=== PATIENT | female | born 1945 ===

== ENCOUNTER 2022-05-30 08:43 | Observation (INO) | payer OTHER ==
--- OUTSIDE RECORDS SUMMARY | 2022-05-30 08:46 | XMS REPORT | Continuity of Care Document ---
:1945 Author Organization [facility] t Address [address] [place] [address] Care Team Providers Name Role Phone Tony Anderson MD Primary Care Physician TONY ANDERSON Attending Clinician Unavailable Problems This patient has no known problems. Allergies, Adverse Reactions, Alerts This patient has no known allergies or adverse reactions. Social History Social Habit Start Date Stop Date Quantity Comments Source Sex Ass[birth year] At [birth year] [facility] 00:00:00 00:00:00 Smoking Status Start Date Stop Date Source Tobacco smoking consumption unknown [facility] Medications This patient has no known medications. Procedures This patient has no known procedures. Plan of Care Planned Activity Planned Date Details Comments Source Future Scheduled 2022-05-30 INFLUENZA VACCINE [facility] Test 08:46:42 [code = INFLUENZA VACCINE] Future Scheduled 2022-05-30 Hepatitis C screening [facility] Test 08:46:42 (procedure) [code = [id number]] Future Scheduled 2022-05-30 BREAST CANCER [facility] Test 08:46:42 SCREENING [code = BREAST CANCER SCREENING] Future Scheduled 2022-05-30 COLONOSCOPY SCREENING [facility] Test 08:46:42 [code = COLONOSCOPY SCREENING] Future Scheduled 2022-05-30 SHINGLES VACCINES (1 Met [facility] Test 08:46:42 of 2) [code = SHINGLES VACCINES (1 of 2)] Future Scheduled 2022-05-30 COVID-19 VACCINE (4 - Me [facility] Test 08:46:42 Booster for Pfizer series) [code = COVID-19 VACCINE (4 - Booster for Pfizer series)] Future Scheduled 2022-05-30 65+ [facility]CCAL [facility] 08:46:42 VACCINE (2 - PPSV23 if available, else PCV20) [code = 65+ PNEUMOCOCCAL VACCINE (2 - PPSV23 if available, else PCV20)] Future Scheduled 2022-05-04 COVID-19 VACCINE ([facility] - [facility] Test 10:58:36 Booster for Pfizer series) [code = COVID-19 VACCINE (4 - Booster for Pfizer series)] Future Scheduled 2022-05-04 65+ [facility]CCAL [facility] Test 10:58:36 VACCINE (2 - PPSV23 if available, else PCV20) [code = 65+ PNEUMOCOCCAL VACCINE (2 - PPSV23 if available, else PCV20)] Future Scheduled 2022-05-04 [facility]ACCINE [facility] Test 10:58:36 [code = INFLUENZA VACCINE] Future Scheduled 2022-05-04 Hepatitis C screening [facility] Test 10:58:36 (procedure) [code = [id number]] Future Scheduled 2022-05-04 BREAST CANCER [facility] Test 10:58:36 SCREENING [code = BREAST CANCER SCREENING] Future Scheduled 2022-05-04 COLONOSCOPY SCREENING [facility] Test 10:58:36 [code = COLONOSCOPY SCREENING] Future Scheduled 2022-05-04 SHINGLES VACCINES (1 Met [facility] Test 10:58:36 of 2) [code = SHINGLES VACCINES (1 of 2)] Future Scheduled 2022-05-04 COVID-19 VACCINE (4 - Me [facility] Test 10:58:36 Booster for Pfizer series) [code = COVID-19 VACCINE (4 - Booster for Pfizer series)] Future Scheduled 2022-05-04 65+ [facility]OCOCCAL [facility] Test 10:58:36 VACCINE (2 - PPSV23 if available, else PCV20) [code = 65+ PNEUMOCOCCAL VACCINE (2 - PPSV23 if available, else PCV20)] Future Scheduled 2022-05-04 [facility]ZA [facility]ACCINE [facility] Test 10:58:36 [code = INFLUENZA VACCINE] Future Scheduled 2022-05-04 Hepatitis C screening [facility] Test 10:58:36 (procedure) [code = [id number]] Future Scheduled 2022-05-04 BREAST CANCER [facility] Test 10:58:36 SCREENING [code = BREAST CANCER SCREENING] Future Scheduled 2022-05-04 COLONOSCOPY SCREENING Me [facility] Test 10:58:36 [code = COLONOSCOPY SCREENING] Future Scheduled 2022-05-04 SHINGLES VACCINES (1 Met [facility] Test 10:58:36 of 2) [code = SHINGLES VACCINES (1 of 2)] Future Scheduled 2022-05-04 COVID-19 VACCINE (4 - Me [facility] Test 10:58:36 Booster for Pfizer series) [code = COVID-19 VACCINE (4 - Booster for Pfizer series)] Future Scheduled 2022-05-04 65+ [facility]OCCAL [facility] Test 10:58:36 VACCINE (2 - PPSV23 if available, else PCV20) [code = 65+ PNEUMOCOCCAL VACCINE (2 - PPSV23 if available, else PCV20)] Future Scheduled 2022-05-04 INFLUENZA VACCINE [facility] Test 10:58:36 [code = INFLUENZA VACCINE] Future Scheduled 2022-05-04 Hepatitis C screening [facility] Test 10:58:36 (procedure) [code = [id number]] Future Scheduled 2022-05-04 BREAST CANCER [facility] Test 10:58:36 SCREENING [code = BREAST CANCER SCREENING] Future Scheduled 2022-05-04 COLONOSCOPY SCREENING [facility] Test 10:58:36 [code = COLONOSCOPY SCREENING] Future Scheduled 2022-05-04 SHINGLES VACCINES (1 Met [facility] Test 10:58:36 of 2) [code = SHINGLES VACCINES (1 of 2)] Future Scheduled 2022-05-03 Hepatitis C screening [facility] Test 16:10:30 (procedure) [code = [id number]] Future Scheduled 2022-05-03 BREAST CANCER [facility] Test 16:10:30 SCREENING [code = BREAST CANCER SCREENING] Future Scheduled 2022-05-03 COLONOSCOPY SCREENING [facility] Test 16:10:30 [code = COLONOSCOPY SCREENING] Future Scheduled 2022-05-03 SHINGLES VACCINES (1 Met [facility] Test 16:10:30 of 2) [code = SHINGLES VACCINES (1 of 2)] Future Scheduled 2022-05-03 COVID-19 VACCINE (4 - Me [facility] Test 16:10:30 Booster for Pfizer series) [code = COVID-19 VACCINE (4 - Booster for Pfizer series)] Future Scheduled 2022-05-03 65+ [facility]AL [facility] 16:10:30 VACCINE (2 - PPSV23 if available, else PCV20) [code = 65+ PNEUMOCOCCAL VACCINE (2 - PPSV23 if available, else PCV20)] Future Scheduled 2022-05-03 INFLUENZA VACCINE [facility] Test 16:10:30 [code = INFLUENZA VACCINE] Future Scheduled 2022-04-11 COLONOSCOPY SCREENING [facility] Test 03:10:41 [code = COLONOSCOPY SCREENING] Future Scheduled 2022-04-11 SHINGLES VACCINES (1 Met [facility] Test 03:10:41 of 2) [code = SHINGLES VACCINES (1 of 2)] Future Scheduled 2022-04-11 COVID-19 VACCINE (4 - [facility] Test 03:10:41 Booster for Pfizer series) [code = COVID-19 VACCINE (4 - Booster for Pfizer series)] Future Scheduled 2022-04-11 65+ PNEUMOCOCCAL [facility] Test 03:10:41 VACCINE (2 - PPSV23 if available, else PCV20) [code = 65+ PNEUMOCOCCAL VACCINE (2 - PPSV23 if available, else PCV20)] Future Scheduled 2022-04-11 INFLUENZA VACCINE Method [facility] Test 03:10:41 [code = INFLUENZA VACCINE] Future Scheduled 2022-04-11 Hepatitis C screening [facility] Test 03:10:41 (procedure) [code = [id number]] Future Scheduled 2022-04-11 BREAST CANCER [facility] Test 03:10:41 SCREENING [code = BREAST CANCER SCREENING] Encounters Start End Encounter Admission Attending Care Care Encounter Source Date/Time Date/Time Type Type Clinicians Facility Department ID 2021-03-22 2021-03-22 Outpatient [facility] [id number] 00:00:00 00:00:00 TONY [address] 2021-03-22 2021-03-22 Outpatient [facility] [id number] 00:00:00 00:00:00 TONY Navarrete[address] [facility] Results This patient has no known results.
[2022-05-30 09:29] LABS: Absolute Lymphocytes (CBC) 2.2 K/uL (0.7-4.9); Hematocrit 35.5 % (36.0-45.0); Lymphocytes % 17.3 % (15.3-44.8); MCV 83.7 fL (80-100); MPV 7.7 fL (7.6-11.3); RBC Red Blood Cell Count 4.24 M/uL (3.86-4.86)
[2022-05-30 10:00] LABS: Protime INR 0.94
[2022-05-30 10:13] LABS: Albumin 3.2 g/dL (3.4-5.0); Bilirubin Total 0.2 mg/dL (0.2-1.0); Protein, Total 7.2 g/dL (6.4-8.2)
--- NOTE | 2022-05-30 10:42 | RAD REPORT ---
EXAM DESCRIPTION: CT - Abdomen Pelvis W Contrast - 05/30/2022 10:26 am CLINICAL HISTORY: painless rectal bleeding COMPARISON: No comparisons TECHNIQUE: Biphasic, helical CT imaging of the abdomen and pelvis was performed following 100 ml non -ionic IV contrast. Oral contrast: No. All CT scans are performed using dose optimization technique as appropriate and may include automated exposure control or mA/KV adjustment according to patient size. FINDINGS: No suspicious findings in the lung bases. The liver, spleen, and pancreas show no suspicious findings. Liver attenuation is borderline to mildl y fatty infiltrated. Gallbladder is contracted. No abnormal biliary tree dilatation. Symmetric renal function is seen with no hydronephrosis or suspicious renal mass. No pyelonephritis o r acute parenchymal process. No bladder abnormalities. No adrenal abnormalities. Uterus still appears to be present and is isodense to adjacent bowel. Ovaries are not identified and absent by provided s urgical history. No stomach or small bowel abnormality. The ball of the colon show no abnormal thickening or edema. N o mass identifiable on CT imaging. No free air, free fluid or inflammatory stranding. No hernia, ma ss or bulky lymphadenopathy. No suspicious bony findings. IMPRESSION: No suspicious finding of the colon and no significant GI abnormality identifiable.
--- NOTE | 2022-05-30 11:24 | ER ---
Nurse's Notes [facility] Name: Analy Bush Age: 76 yrs Sex: Female : 1945 Arrival Date: 05/30/2022 Time: 08:44 Bed 23 Private MD: Tony Anderson V; Luis Oconnor M Diagnosis: GI Bleed/ Gastrointestinal hemorrhage, unspecified;Anemia, unspecified Presentation: 05/30 08:55 Chief complaint: Patient states: 5 bloody diarrhea episodes between [id number] today. Pt aa5 denies vomiting. Reports she had a colonoscopy 05/18/[address] Oconnor, polyps were found and biopsy result is pending. 08:55 Coronavirus screen: diarrhea. Ebola Screen: Patient denies travel to an Ebola-affected [facility] area in the 21 days before illness onset. Initial Sepsis Screen: Does the patient meet any 2 criteria? HR > 90 bpm. Does the patient have a suspected source of infection? No. Patient's initial sepsis screen is negative. Risk Assessment: Do you want to hurt yourself or someone else? Patient reports no desire to harm self or others. Onset of symptoms was May 30, 2022. 08:55 Acuity: JOSE MANUEL 3 aa5 08:55 Method Of Arrival: Ambulatory aa5 Historical: - Allergies: 09:07 PENICILLINS; aa5 09:07 Aspirin; aa5 - PMHx: 09:07 Hypertensive disorder; Hypothyroidism; pre-diabetes; Breast Cancer; aa5 - PSHx: 09:07 Double mastectomy; Both ovaries removed; R ankle; aa5 - Immunization history:: Adult Immunizations unknown. - Social history:: Smoking status: Patient denies any tobacco usage or history of. - Family history:: not pertinent. - Hospitalizations: : No recent hospitalization is reported. Screenin:54 [facility] ED Fall Risk Assessment (Adult) Score/Fall Risk Level 0 - 2 = Low Risk. Abuse iw screen: Denies threats or abuse. Denies injuries from another. Nutritional screening: No deficits noted. Tuberculosis screening: No symptoms or risk factors identified. Assessment: 09:53 General: Appears in no apparent distress. Behavior is calm, cooperative. Pain: Denies iw pain. Neuro: Level of Consciousness is awake, alert, obeys commands, Oriented to person, place, time, situation, Moves all extremities. Full function. Cardiovascular: Patient's skin is warm and dry. Respiratory: Respiratory effort is even, unlabored, Respiratory pattern is regular, symmetrical. GI: Abdomen is non-distended, Reports rectal bleeding. Derm: Skin is intact, is healthy with good turgor. 11:54 Reassessment: Patient appears in no apparent distress at this time. Patient and/or iw family updated on plan of care and expected duration. Pain level reassessed. Patient is alert, oriented x 3, equal unlabored respirations, skin warm/dry/pink. 12:18 Reassessment: Dr. Arvizu at bedside discussing results and POC with pt and family. jl7 Vital Signs: 08:55 BP 140 / 69; Pulse 108; Resp 18 S; Temp 98.9(O); Pulse Ox 99% on R/A; Weight 68.04 kg aa5 (R); Height 5 ft. 3 in. (160.02 cm) (R); 11:54 BP 116 / 72; Pulse 92; Resp 16; Pulse Ox 100% on R/A; Pain 0/10; iw 08:55 Body Mass Index 26.57 (68.04 kg, 160.02 cm) aa5 ED Course: 08:44 Patient arrived in ED. as 08:44 Tony Anderson MD is Private Physician. as 08:44 Luis Oconnor MD is Private Physician. as 08:45 Kei Arvizu MD is Attending Physician. rn 08:54 Arm band placed on Patient placed in an exam room, on a stretcher. aa5 09:07 Triage completed. aa5 09:09 Yuliya Schmidt RN is Primary Nurse. iw 09:54 Missed attempt(s): 20 gauge in right antecubital area. Bleeding controlled, band aid iw applied, catheter tip intact. 09:54 Inserted saline lock: 22 gauge in left wrist, using aseptic technique. IV inserted by christy Jeffery RN. 10:28 CT Abd/Pelvis - IV Contrast Only In Process Unspecified. EDMS 11:24 Tony Anderson MD is Hospitalizing Provider. rn 12:51 Patient has correct armband on for positive identification. Pulse ox on. NIBP on. jl7 18:00 No provider procedures requiring assistance completed. Patient admitted, IV remains in jl7 place. intact, No redness/swelling at site. Administered Medications: No medications were administered Medication: 09:55 VIS not applicable for this client. christy Outcome: 11:24 Decision to Hospitalize by Provider. rn 18:00 Admitted to ER Hold. Please see [facility] for further documentation. laxmi 18:00 Condition: stable 18:00 Discharge instructions given to patient, family, Instructed on the need for admit, Demonstrated understanding of instructions. 05/31 07:52 Patient left the ED. kl Signatures: Dispatcher [employer] EDMS Sandra Aceveod, Cynthia Cedillo RN, Irene, Kei Yepez RN, MD MD rn Calderon, Audri, RN RN aa5 Justin Holm RN RN jl7
--- NOTE | 2022-05-30 11:24 | EDPHYS ---
Physician Documentation [facility] Name: Analy Bush Age: 76 yrs Sex: Female : 1945 Arrival Date: 05/30/2022 Time: 08:44 Bed 23 Private MD: Tony Anderson V; Meah, Nizam, M ED Physician Kei Arvizu HPI: 05/30 09:15 This 76 yrs old Female presents to ER via Ambulatory with complaints of Rectal rn Bleeding, Diarrhea. 09:15 The patient presents to the emergency department with bleeding from the rectum/anus, rn that is mild. Onset: The symptoms/episode began/occurred this morning. Modifying factors: The symptoms are alleviated by nothing, The symptoms are aggravated by bowel movement. Associate signs and symptoms: Pertinent positives: lower GI bleeding, Pertinent negatives: abdominal pain, fever. The patient has not experienced similar symptoms in the past. The patient has not recently seen a physician. Does not take any blood thinners. . Historical: - Allergies: 09:07 PENICILLINS; aa5 09:07 Aspirin; aa5 - PMHx: 09:07 Hypertensive disorder; Hypothyroidism; pre-diabetes; Breast Cancer; aa5 - PSHx: 09:07 Double mastectomy; Both ovaries removed; R ankle; aa5 - Immunization history:: Adult Immunizations unknown. - Social history:: Smoking status: Patient denies any tobacco usage or history of. - Family history:: not pertinent. - Hospitalizations: : No recent hospitalization is reported. ROS: 09:15 Constitutional: Negative for fever, chills, and weight loss, Eyes: Negative for injury, rn pain, redness, and discharge, Cardiovascular: Negative for chest pain, palpitations, and edema, Respiratory: Negative for shortness of breath, cough, wheezing, and pleuritic chest pain, Abdomen/GI: + rectal bleeding, negative for abd pain Back: Negative for injury and pain, MS/Extremity: Negative for injury and deformity, Skin: Negative for injury, rash, and discoloration, Neuro: Negative for headache, numbness, tingling, and seizure. Exam: 09:15 Constitutional: This is a well developed, well nourished patient who is awake, alert, rn and in no acute distress. Head/Face: Normocephalic, atraumatic. Cardiovascular: Tachycardic, regular Respiratory: No increased work of breathing, no retractions or nasal flaring. Abdomen/GI: soft, non-tender Skin: Warm, dry MS/ Extremity: Pulses equal, no cyanosis. Neuro: Awake and alert, GCS 15 Vital Signs: 08:55 BP 140 / 69; Pulse 108; Resp 18 S; Temp 98.9(O); Pulse Ox 99% on R/A; Weight 68.04 kg aa5 (R); Height 5 ft. 3 in. (160.02 cm) (R); 11:54 BP 116 / 72; Pulse 92; Resp 16; Pulse Ox 100% on R/A; Pain 0/10; iw 08:55 Body Mass Index 26.57 (68.04 kg, 160.02 cm) aa5 MDM: 08:45 Patient medically screened. rn 11:15 Management of patient was discussed with the following: Departmental Secretary: Discussed case with rn Dr. Oconnor's PLANTING MATERIAL REMOVER, she will consult with Dr. Calles and get back with me with recommendations. Told her that I prefer to observe in hospital and would like Dr. Calles to consult. . 11:20 Differential diagnosis: hemorrhoids, bleeding from polyp removal, bleeding from scab, rn MARIAH, diverticulosis, internal hemorrhoids. Data reviewed: vital signs, nurses notes, lab test result(s), radiologic studies. Consideration of Admission/Observation Escalation of care including admission/observation considered. Counseling: I had a detailed discussion with the patient and/or guardian regarding: the historical points, exam findings, and any diagnostic results supporting the discharge/admit diagnosis, lab results, radiology results, the need for further work-up and treatment in the hospital. Response to treatment: the patient's symptoms have mildly improved after treatment, and as a result, I will admit patient. ED course: No further episodes of bloody bowel movements while in ER, may be slowing, could be from recent polyp removal. Stable vitals and hemoglobin 11.7. Waiting education finance processor back from Dr. Calles. . 05/30 09:14 Order name: CBC with Diff; Complete Time: 10:19 rn 05/30 09:14 Order name: CMP; Complete Time: 10: rn 05/30 09:14 Order name: Lipase; Complete Time: : rn 05/30 09:14 Order name: Type And Screen; Complete Time: 10:19 rn 05/30 09:14 Order name: PT-INR; Complete Time: 10:19 rn 05/30 09:14 Order name: Ptt, Activated; Complete Time: 10:19 rn 05/30 09:14 Order name: CT Abd/Pelvis - IV Contrast Only; Complete Time: 10:45 rn 05/30 09:14 Order name: IV Saline Lock; Complete Time: 09:48 rn 05/30 09:14 Order name: Labs collected and sent; Complete Time: 09:33 rn 05/30 11:29 Order name: SARS-COV-2 Antigen Rapid; Complete Time: 12:16 bd 05/30 18:36 Order name: Hemoglobin EDMS 05/30 20:14 Order name: Hemoglobin EDMS 05/31 03:02 Order name: CBC with Automated Diff EDMS 05/31 03:58 Order name: Basic Metabolic Panel EDMS 05/30 09:37 Order name: Labs - recollect needed: green/blue top; Complete Time: 09:49 aa5 Administered Medications: No medications were administered Disposition Summary: 05/30/22 11:24 Hospitalization Ordered Hospitalization Status: Observation rn Provider: Tony Anderson rn Condition: Stable rn Problem: new rn Symptoms: have improved rn Bed/Room Type: Standard rn Location: Telemetry/MedSurg (observation)(05/31/22 06:01) mw Room Assignment: 403(05/31/22 06:01) mw Diagnosis - GI Bleed/ Gastrointestinal hemorrhage, unspecified rn - Anemia, unspecified rn Forms: - Medication Reconciliation Form rn - SBAR form rn Signatures: Dispatcher [facility] Cara Otero RN RN Kei Parada MD MD rn Calderon, Audri, RN RN aa5 Justin Holm RN RN jl7 Corrections: (The following items were deleted from the chart) 19:08 11:24 Telemetry/MedSurg (observation) deborah hair 19:08 11:24 deborah hair 05/31 06:05/30 19:08 [facility] ER HOLD laxmi mw 05/31 06:05/30 19:08 ERHOLD- laxmi mw
[2022-05-30 12:04] LABS: SARS-CoV-2 Antigen Rapid Res Negative (Negative)
[2022-05-30] MEDS ORDERED: ONDANSETRON 4 MG/2 ML VIAL IV PRN (15:22)
[2022-05-30] MEDS ORDERED: D5 0.45 NS 1,000 ML IV ONE (18:27)
[2022-05-30] MEDS: D5 0.45 NS 1,000 ML IV SCH (18:30)
[2022-05-30 18:33] VITALS: BMI 25.7
[2022-05-30] MEDS ORDERED: GOLYTELY 4000 ML PO SCH (20:00)
[2022-05-30] MEDS ORDERED: MAGNESIUM CITRATE 300 ML BOT PO SCH (20:00)
[2022-05-30] MEDS: METOCLOPRAMIDE 10 MG/2mL INJ IV SCH (20:00)
[2022-05-30] MEDS ORDERED: METOCLOPRAMIDE 10 MG/2mL INJ ONE (21:26)
--- NOTE | 2022-05-30 21:59 | P.HP ---
Certification for Inpatient Patient admitted to: Observation With expected LOS: <2 Midnights Practitioner: I am a practitioner with admitting privileges, knowledge of patient current condition, hospital course, and medical plan of care. Services: Services provided to patient in accordance with Admission requirements found in Title 42 Section 412.3 of the Code of Federal Regulations Patient History Date of Service: 05/30/22 Reason for admission: GI BLEED History of Present Illness: ABOUT 12 DAYS AFTER COLONOSCOPY SHE HAD ACUTE BLEEDING LOWER. GATITO REMOVED POLYP ON . Allergies aspirin Allergy (Verified 07/31/16 13:58) rash, swelling Penicillins Adverse Reaction (Verified 08/03/16 10:41) Rash Home medications list reviewed: Yes Home Medications: Amlodipine Besylate 10 mg PO DAILY 05/30/22 Levothyroxine Sodium [Levothyroxine] 75 mcg PO DAILY 05/30/22 - Past Medical/Surgical History Has patient received pneumonia vaccine in the past: Yes Diabetic: No -: HTN -: Thyroid - Social History Smoking Status: Never smoker Place of Residence: Home Review of Systems 10-point ROS is otherwise unremarkable General: Malaise Gastrointestinal: Other Physical Examination - Vital Signs Temperature: 98.3 F Blood Pressure: 110/73 Pulse: 87 Respirations: 15 Pulse Ox (%): 97 - Physical Exam General: Alert, In no apparent distress HEENT: Atraumatic, PERRLA, Mucous membr. moist/pink, EOMI, Sclerae nonicteric Neck: Supple, 2+ carotid pulse no bruit, No LAD, Without JVD or thyroid abnormality Respiratory: Clear to auscultation bilaterally, Normal air movement Cardiovascular: Regular rate/rhythm, Normal S1 S2 Gastrointestinal: Normal bowel sounds, No tenderness Musculoskeletal: No tenderness Integumentary: No rashes Neurological: Normal gait, Normal speech, Normal strength at 5/5 x4 extr, Normal tone, Normal affect Lymphatics: No axilla or inguinal lymphadenopathy - Studies Laboratory Data (last 24 hrs) 05/30/22 09:45: PT 10.3, INR 0.94, APTT 27.6 05/30/22 09:45: Sodium 139, Potassium 4.0, BUN 14, Creatinine 0.81, Glucose 155 H, Total Bilirubin 0.2, AST 17, ALT 18, Alkaline Phosphatase 77, Lipase 198 05/30/22 09:17: WBC 12.50 H, Hgb 11.7 L, Hct 35.5 L, Plt Count 316 Assessment and Plan - Problems (Diagnosis) (1) GI bleed Current Visit: Yes Status: Acute Plan: LWOER GI BLEEDING. CBC IN AM SHE SHOULD BE ABLE TO GO HOME TOMORROW POLYPECTOMY CAN LEAD TO LATE BLEEDING. NOT UNUSAL. - Advance Directives Does patient have a Living Will: No Does patient have a Durable POA for Healthcare: No
[2022-05-30] MEDS ORDERED: GOLYTELY 4000 ML ONE (22:16)
[2022-05-31] MEDS ORDERED: METOCLOPRAMIDE 10 MG/2mL INJ ONE (01:35)
[2022-05-31] MEDS: METOCLOPRAMIDE 10 MG/2mL INJ IV SCH ×2 (02:00→09:20)
[2022-05-31 02:59] LABS: Absolute Lymphocytes (CBC) 1.6 K/uL (0.7-4.9); Hematocrit 31.3 % (36.0-45.0); Lymphocytes % 11.2 % (15.3-44.8); MCV 83.6 fL (80-100); MPV 8.3 fL (7.6-11.3); RBC Red Blood Cell Count 3.75 M/uL (3.86-4.86)
[2022-05-31 03:36] LABS: Potassium 3.8 mmol/L (3.5-5.1)
[2022-05-31] MEDS ORDERED: CIPROFLOXACIN 400mg IV 400 MG/200 ML BAG IV SCH (09:00)
[2022-05-31] MEDS: D5 0.45 NS 1,000 ML IV SCH ×2 (09:23→09:30)
[2022-05-31] MEDS: NA CHLORIDE 0.9% 1,000 ML ONE ×2 (10:02→10:21)
[2022-05-31] MEDS ORDERED: ETOMIDATE 20 MG/10 ML VIAL IV ONE (10:33)
[2022-05-31] MEDS ORDERED: propofoL 200 MG/20 ML VIAL IV ONE (10:33)
[2022-05-31] MEDS ORDERED: LIDOCAINE 1% MPF 5 ML VIAL ONE (10:33)
[2022-05-31] MEDS ORDERED: EPINEPHRINE/PF 1 MG/ML AMP ONE (11:21)
[2022-05-31] MEDS ORDERED: Phenylephrine HCl 10 MG/ML 1 ML VIAL ONE (11:26)
[2022-05-31 11:27] VITALS: O2SAT 94
--- NOTE | 2022-05-31 11:27 | ENDO RPT ---
[facility] [address], [id number] COLONOSCOPY PROCEDURE REPORT EXAM DATE: 05/31/2022 PATIENT NAME: Analy Bush MR #: [id number] BIRTHDATE: 1945 ATTENDING: Mayco Levine Dr STATUS: inpatient - [facility] [employer]ER: Jesi Kraft RN, Frannie Osman RN, and Criss Bright INDICATIONS: The patient is a 76 yr old Female here for a colonoscopy due to hematochezia and anemia PROCEDURE PERFORMED: Colonoscopy for control of bleeding, Colon w/ endoclip, and Colonoscopy with directed submucosal injection(s) any substance MEDICATIONS: Per Anesthesia. ESTIMATED BLOOD LOSS: None CONSENT: The patient understands the risks and benefits of the procedure and understands that these risks include, but are not limited to: sedation, allergic reaction, infection, perforation and/or bleeding. Alternative means of evaluation and treatment include, among others: physical exam, x-rays, and/or surgical intervention. The patient elects to proceed with this endoscopic procedure. DESCRIPTION OF PROCEDURE: During intra-op preparation period all mechanical medical equipment was checked for proper function. Hand hygiene and appropriate measures for infection prevention was taken. Procedure, possible complications, alternatives including, but not limited to possibility of bleeding, perforation, tear, infection, sepsis, need for surgery, need for blood transfusion, were explained to the patient. After the risks, benefits and alternatives of the procedure were thoroughly explained, Informed consent was verified, confirmed and timeout was successfully executed by the treatment team. The patient was placed in the left lateral position. A digital rectal exam was performed and revealed several skin tags. After appropriate level of anesthesia, the scope was passed. The EC-[id number] ([id number]) endoscope was introduced through the anus and advanced to the cecum, which was identified by both the appendix and ileocecal valve. The quality of the prep was good. The instrument was then slowly withdrawn as the colon was fully examined. Scope withdrawal time was 9 minutes. COLON FINDINGS: A single bleeding and clean-based ulcer measuring 10 x 9mm in size with a visible vessel was found at the cecum at prior polypectomy site from 05-18-. Complete hemostasis was achieved by placing two Cook instinct hemoclips on the bleeding site(s). Submucosal injection of 4ml of epinephrine 1:10,000 was performed around the bleeding site. Small internal hemorrhoids were found. Retroflexed views revealed no abnormalities. The scope was then completely withdrawn from the patient and the procedure terminated. ADVERSE EVENTS: There were no complications. IMPRESSIONS: 1. Single ulcer measuring 10 x 9mm in size at the cecum with visible vessel in the base of the ulcer at prior polypectomy site from 05-18-22; Complete hemostasis was achieved by placing two hemoclips on the bleeding site(s); Submucosal injection of 4ml of epinephrine 1:10,000 was performed around the bleeding site 2. Small internal hemorrhoids 3. Intubation to cecum RECOMMENDATIONS: 1. avoid NSAIDS for 2 weeks 2. clear liquid diet and advance as tolerated to a GI soft diet RECALL: Mayco Levine Dr eSigned: Mayco Levine Dr 05/31/2022 11:26 AM cc: Tony Anderson CPT CODES: ICD9 CODES: PATIENT NAME: Analy Bush MR#: [id number]
[2022-05-31] MEDS ORDERED: METRONIDAZOLE 500mg IVPB 500 MG/100 ML BAG IV SCH (12:00)
[2022-05-31 16:38] VITALS: BP 123/65; TEMP 97.9
== END 2022-05-31 17:32 | disposition home or self-care (01) ==
LOC: ER 08:43 → ERHOLD 14:15 → 4TH 05-31 07:45
PROVIDERS: ADMIT Internal Medicine; ATTEND Internal Medicine
PROC: 3E0H8KZ Introduction of Other Diagnostic Substance into Lower GI, Via Natural or Artificial Opening Endoscopic (ICD-10-PCS; 2022-05-31)
PROC: 0W3P8ZZ Control Bleeding in Gastrointestinal Tract, Via Natural or Artificial Opening Endoscopic (ICD-10-PCS; principal; 2022-05-31 09:45)
DX: K92.2 Gastrointestinal hemorrhage, unspecified (principal); K64.8 Other hemorrhoids; E03.9 Hypothyroidism, unspecified; I10 Essential (primary) hypertension; Z88.0 Allergy status to penicillin; Z88.6 Allergy status to analgesic agent; Z98.890 Other specified postprocedural states; Z86.010 Personal history of colon polyps; Z85.3 Personal history of malignant neoplasm of breast; Z20.822 Contact with and (suspected) exposure to COVID-19
CPT/HCPCS: 45382; 45381; 85025 ×2; 80048; 36415; 86900; 86850; 85610; 86901; 85730; 85018 ×2; 83690; 80053; 74177; 87811; Q9967; J2704; J0171; J2765 ×3; J2001; J2370; J7799 ×2; J7030; J0744; G0378